=== PATIENT | male | born 1990 | race Caucasian/White ===

== ENCOUNTER 2018-07-19 09:53 | Emergency (ER) | payer OTHER ==
[~2018-07-19] VITALS: Ht 172.7 cm; Wt 74.8 kg
[2018-07-19 10:04] VITALS: Ht 172.7 cm; Wt 74.8 kg
[2018-07-19 11:55] VITALS: BP 133/80
== END 2018-07-19 11:55 | disposition home or self-care (01) ==
LOC: ED 09:53
DX: S68.124A Partial traumatic metacarpophalangeal amputation of right ring finger, initial encounter (principal); X58.XXXA Exposure to other specified factors, initial encounter; Y93.89 Activity, other specified; Y92.89 Other specified places as the place of occurrence of the external cause; Y99.0 Civilian activity done for income or pay
CPT/HCPCS: J1885; J2001; Q0092